=== PATIENT | male | born 1935 | race Caucasian/White ===

== ENCOUNTER 2017-07-22 16:19 | Inpatient (IN) | payer OTHER ==
[~2017-07-22] VITALS: Ht 165.1 cm; Wt 65.1 kg
[~2017-07-22 16:19] MED LIST: ASPIRIN325 MG PO; AUGMENTIN875 MG PO; CALCIUM 500 +1 EACH PO; CLONAZEPAM0.5 MG PO; CYANOCOBALAM1000 MCG PO; DAILY VITAMIN1 EAC4 PO; DUONEB 2.5-0.5 M3 ML AEROSOL; ESCITALOPRAM OX10 MG PO; ESCITALOPRAM OX20 MG PO; EXELON PATCH9.5 MG TD; EXELON3 MG PO; FINASTERIDE5 MG PO; FOLIC ACID0.8 MG PO; FOLIC ACID1 MG PO; LIPITOR80 MG PO; LOPRESSOR50 MG PO; NAMENDA10 MG PO; OMEPRAZOLE20 MG PO; PANTOPRAZOLE SO40 MG PO; POLYETHYLENE GL17 GM PO; PREDNISONE10 MG PO; PROTONIX40 MG PO; RIVASTIGMINE4.5 MG PO; Robitussin DM PO; SENNA-TIME S T1 EACH PO; TAMSULOSIN HCL0.4 MG PO; TRAMADOL HCL50 MG PO; TRAZODONE HCL50 MG PO; VALIUM10 MG PO; VITAMIN E400 UNI6 PO; ZETIA10 MG PO
[2017-07-22 17:26] LABS: HEMATOCRIT 40.9 % (38.0-50.0); HEMOGLOBIN 13.5 G/DL (12.5-16.6); MCH 30.9 PG (29.0-34.0); MCV 93.6 FL (86-99); PLATELET COUNT 280 K/uL (156-360); RBC DIS.WIDTH-CV 13.1 % (11.8-14.6); RBC DIS.WIDTH-SD 45.1 % (39-53); RED BLOOD COUNT 4.37 M/uL (4.00-5.50); WHITE BLOOD COUNT 6.5 K/uL (4.1-10.2)
[2017-07-22 17:41] LABS: CHLORIDE 98 mEq/L (99-109); POTASSIUM 3.9 mEq/L (3.7-5.4); SODIUM 138 mEq/L (136-147)
[2017-07-22 17:42] LABS: GLUCOSE 86 mg/dL (70-99)
[2017-07-22 17:46] LABS: CREATININE 0.8 mg/dL (0.6-1.3); GFR ESTIMATE (CALCULATED) > 59 mL/min/ (58.99-99999)
[2017-07-22 17:47] LABS: UREA NITROGEN (BUN) 12 mg/dL (9-23)
[2017-07-22 18:51] LABS: TROP-I INTERPRETATION NEGATIVE; TROPONIN-I < 0.01 ng/mL (0.0-0.30)
[2017-07-22] MEDS ORDERED: HYCODAN SYRUP480 ML PO (23:11)
[2017-07-22] MEDS ORDERED: SINGULAIR10 MG PO (23:12)
[2017-07-22] MEDS ORDERED: NIACIN500 M1 PO (23:12)
[2017-07-22] MEDS ORDERED: SINUS & ALLERG1 EACH PO (23:12)
[2017-07-23 02:05] LABS: HEMATOCRIT 38.5 % (38.0-50.0); HEMOGLOBIN 12.9 G/DL (12.5-16.6); MCH 31.2 PG (29.0-34.0); MCHC 33.5 G/DL (30.0-36.0); MCV 93.2 FL (86-99); PLATELET COUNT 245 K/uL (156-360); RBC DIS.WIDTH-SD 44.8 % (39-53); RED BLOOD COUNT 4.13 M/uL (4.00-5.50); WHITE BLOOD COUNT 8.9 K/uL (4.1-10.2)
[2017-07-23 03:00] VITALS: BP 117/56
[2017-07-23 07:06] LABS: APPEARANCE CLEAR ((CLEAR)); BILIRUBIN NEGATIVE; BLOOD NEGATIVE; COLOR YELLOW ((YELLOW)); GLUCOSE (STRIP) NEGATIVE; KETONES 20; LEUKOCYTES NEGATIVE; NITRITE NEGATIVE; PROTEIN (STRIP) NEGATIVE; SPECIFIC GRAVITY 1.012 (1.000-1.030); UCUL ADDED? NO; UROBILINOGEN 0.2 MG/DL (0.2-1.0)
[2017-07-23 07:10] LABS: TROP-I INTERPRETATION NEGATIVE; TROPONIN-I < 0.01 ng/mL (0.0-0.30)
[2017-07-23 07:11] LABS: HDL CHOLESTEROL 32 MG/DL (Desirable>=40); LDL CHOLESTEROL 89 mg/dL (Desirable<100); NON-HDL CHOLESTEROL 96 mg/dL (Desirable<160); TOTAL CHOLESTEROL 128 mg/dL (Desirable<200); TRIGLYCERIDES 34 MG/DL (Normal: <150)
[2017-07-23 10:42] LABS: C-REACTIVE PROTEIN 23.2 MG/L (0-10)
[2017-07-23 10:43] LABS: HEMOGLOBIN A1c (GLYCOHEMOGLOB) 6.2 % (Below 5.7)
[2017-07-23 11:09] VITALS: BP 109/56
[2017-07-23 14:42] LABS: TROP-I INTERPRETATION NEGATIVE; TROPONIN-I < 0.01 ng/mL (0.0-0.30)
[2017-07-23 15:01] VITALS: BP 107/59
[2017-07-23 19:19] VITALS: BP 137/72
[2017-07-23 23:37] VITALS: BP 133/69
[2017-07-24] VITALS (7 sets, daily range): BP systolic 111–135; BP diastolic 62–71
[2017-07-25 00:18] VITALS: BP 161/81
[2017-07-25 04:00] VITALS: BP 155/79
[2017-07-25 06:37] LABS: BASOPHIL (%) 0 % (0-1); EOSINOPHIL (%) 0 % (0-5); HEMATOCRIT 40.7 % (38.0-50.0); HEMOGLOBIN 13.2 G/DL (12.5-16.6); IMMATURE GRANULOCYTE (%) 0.3 % (0.0-0.7); LYMPHOCYTE (%) 12.9 % (15-42); LYMPHOCYTE COUNT 1.2 K/uL (1.0-2.8); MCHC 32.4 G/DL (30.0-36.0); MCV 92.5 FL (86-99); MONOCYTE (%) 6.5 % (3-12); MONOCYTE COUNT 0.6 K/uL (0-0.8); NEUTROPHIL (%) 80.3 % (45-76); NEUTROPHIL COUNT 7.4 K/uL (1.8-6.4); PLATELET COUNT 295 K/uL (156-360); RBC DIS.WIDTH-CV 12.9 % (11.8-14.6); RBC DIS.WIDTH-SD 44.2 % (39-53); WHITE BLOOD COUNT 9.2 K/uL (4.1-10.2)
[2017-07-25 07:00] LABS: CHLORIDE 98 MEQ/L (99-109); CREATININE 0.7 MG/DL (0.6-1.3); GFR ESTIMATE (CALCULATED) > 59 mL/min/ (58.99-99999); SODIUM 139 MEQ/L (136-147); UREA NITROGEN (BUN) 13 mg/dL (9-23)
[2017-07-25 07:04] LABS: GLUCOSE 114 mg/dL (70-99)
[2017-07-25 07:45] VITALS: BP 159/73
[2017-07-25] MEDS ORDERED: PREDNISONE10 MG PO (11:09)
[2017-07-25 12:01] VITALS: BP 130/71
== END 2017-07-25 13:22 | disposition home or self-care (01) | DRG 516 ==
LOC: EME 16:19 → EDOF 07-23 01:18 → 5SOUTH 07-23 01:18 → ENRESERV 07-23 01:24 → 5SOUTH 07-23 02:49
PROVIDERS: Hospitalist; Student in an Organized Health Care Education/Training Program
PROC: 03BS0ZX Excision of Right Temporal Artery, Open Approach, Diagnostic (ICD-10-PCS; principal; 2017-07-23)
DX: M31.6 Other giant cell arteritis (principal); R06.02 Shortness of breath; J84.10 Pulmonary fibrosis, unspecified; K21.9 Gastro-esophageal reflux disease without esophagitis; I25.10 Atherosclerotic heart disease of native coronary artery without angina pectoris; I10 Essential (primary) hypertension; F33.1 Major depressive disorder, recurrent, moderate; F02.81 Dementia in other diseases classified elsewhere, unspecified severity, with behavioral disturbance; E78.00 Pure hypercholesterolemia, unspecified; G30.9 Alzheimer's disease, unspecified; E78.5 Hyperlipidemia, unspecified; Z85.828 Personal history of other malignant neoplasm of skin; Z87.891 Personal history of nicotine dependence; I25.2 Old myocardial infarction; Z95.1 Presence of aortocoronary bypass graft; Z86.73 Personal history of transient ischemic attack (TIA), and cerebral infarction without residual deficits; Z82.3 Family history of stroke; Z88.5 Allergy status to narcotic agent
CPT/HCPCS: 70450; 70551; 71046; 80048; 80061; 81003; 83036; 84484; 85025; 85027; 85652; 86140; 88305; 88313; 93005; 94640; 94640 76; 94799; 99202; 99281; 99285; J0690; J1644; J2270; J2405; J3010; J7040; J7512; S0020

== ENCOUNTER 2017-08-25 16:10 | Emergency (ER) | payer OTHER ==
[~2017-08-25] VITALS: Ht 167.6 cm; Wt 70.4 kg
[~2017-08-25 16:10] MED LIST changes: +HYCODAN SYRUP480 ML PO; +NIACIN500 M1 PO; +SINGULAIR10 MG PO; +SINUS & ALLERG1 EACH PO
[2017-08-25 17:00] LABS: BASOPHIL (%) 0.5 % (0-1); EOSINOPHIL COUNT 0.5 K/uL (0-0.3); HEMATOCRIT 43.5 % (38.0-50.0); HEMOGLOBIN 14.5 G/DL (12.5-16.6); IMMATURE GRANULOCYTE (%) 0.2 % (0.0-0.7); LYMPHOCYTE (%) 31.2 % (15-42); LYMPHOCYTE COUNT 1.7 K/uL (1.0-2.8); MCH 31.3 PG (29.0-34.0); MCHC 33.3 G/DL (30.0-36.0); MONOCYTE (%) 12.4 % (3-12); MONOCYTE COUNT 0.7 K/uL (0-0.8); NEUTROPHIL (%) 46.7 % (45-76); NEUTROPHIL COUNT 2.6 K/uL (1.8-6.4); PLATELET COUNT 358 K/uL (156-360); RBC DIS.WIDTH-CV 14.5 % (11.8-14.6); RBC DIS.WIDTH-SD 50.4 % (39-53); RED BLOOD COUNT 4.63 M/uL (4.00-5.50); WHITE BLOOD COUNT 5.6 K/uL (4.1-10.2)
[2017-08-25 17:08] LABS: ALBUMIN 3.7 g/dL (3.2-4.8)
[2017-08-25 17:09] LABS: CHLORIDE 99 mEq/L (99-109); SODIUM 138 mEq/L (136-147)
[2017-08-25 17:11] LABS: GLUCOSE 132 mg/dL (70-99); TOTAL PROTEIN 7.5 g/dL (6.4-8.3)
[2017-08-25 17:14] LABS: ALKALINE PHOSPHATASE 123 IU/L (3-129); TOTAL BILIRUBIN 0.5 mg/dL (0.0-1.0)
[2017-08-25 17:15] LABS: CREATININE 0.8 mg/dL (0.6-1.3); GFR ESTIMATE (CALCULATED) > 59 mL/min/ (58.99-99999)
[2017-08-25 17:16] LABS: AST (GOT) 32 IU/L (2-34); UREA NITROGEN (BUN) 11 mg/dL (9-23)
[2017-08-25 17:17] LABS: ALT (GPT) 30 IU/L (3-49)
[2017-08-25 17:20] LABS: TROP-I INTERPRETATION NEGATIVE; TROPONIN-I < 0.01 ng/mL (0.0-0.30)
[2017-08-25 17:41] LABS: ERTH.SED.RATE 65 MM/HR (0-20)
[2017-08-25 17:47] LABS: C-REACTIVE PROTEIN 8.1 MG/L (0-10)
[2017-08-25 19:38] VITALS: BP 154/82
== END 2017-08-25 19:44 | disposition home or self-care (01) ==
LOC: EME 16:10
PROVIDERS: Emergency Medicine
DX: R51 Headache (principal); I10 Essential (primary) hypertension; E78.5 Hyperlipidemia, unspecified; K21.9 Gastro-esophageal reflux disease without esophagitis; F03.90 Unspecified dementia, unspecified severity, without behavioral disturbance, psychotic disturbance, mood disturbance, and anxiety; I25.2 Old myocardial infarction; Z95.1 Presence of aortocoronary bypass graft; Z86.73 Personal history of transient ischemic attack (TIA), and cerebral infarction without residual deficits; Z88.5 Allergy status to narcotic agent
CPT/HCPCS: 70450; 80053; 84484; 85025; 85652; 86140; 93005; 99281; 99285; J2270

== ENCOUNTER 2017-09-12 07:36 | Inpatient (IN) | payer OTHER ==
[~2017-09-12] VITALS: Ht 165.1 cm; Wt 69.6 kg
[2017-09-12 08:31] LABS: BASOPHIL (%) 0.2 % (0-1); EOSINOPHIL (%) 0 % (0-5); HEMATOCRIT 37.3 % (38.0-50.0); HEMOGLOBIN 12.7 G/DL (12.5-16.6); IMMATURE GRANULOCYTE (%) 0.4 % (0.0-0.7); LYMPHOCYTE (%) 3.3 % (15-42); LYMPHOCYTE COUNT 0.5 K/uL (1.0-2.8); MCH 30.7 PG (29.0-34.0); MCV 90.1 FL (86-99); MONOCYTE (%) 7.3 % (3-12); NEUTROPHIL (%) 88.8 % (45-76); NEUTROPHIL COUNT 12.3 K/uL (1.8-6.4); PLATELET COUNT 340 K/uL (156-360); RBC DIS.WIDTH-CV 13.9 % (11.8-14.6); RBC DIS.WIDTH-SD 45.8 % (39-53); RED BLOOD COUNT 4.14 M/uL (4.00-5.50); WHITE BLOOD COUNT 13.8 K/uL (4.1-10.2)
[2017-09-12 08:40] LABS: CHLORIDE 96 mEq/L (99-109); POTASSIUM 4.2 mEq/L (3.7-5.4); SODIUM 136 mEq/L (136-147)
[2017-09-12 08:42] LABS: GLUCOSE 128 mg/dL (70-99)
[2017-09-12 08:46] LABS: CREATININE 0.7 mg/dL (0.6-1.3); GFR ESTIMATE (CALCULATED) > 59 mL/min/ (58.99-99999)
[2017-09-12 08:47] LABS: UREA NITROGEN (BUN) 13 mg/dL (9-23)
[2017-09-12 09:46] LABS: TROP-I INTERPRETATION NEGATIVE; TROPONIN-I 0.04 ng/mL (0.0-0.30)
[2017-09-12 13:29] VITALS: BP 105/64
[2017-09-12 15:30] VITALS: BP 120/64
[2017-09-12 22:41] VITALS: BP 104/62
[2017-09-13 05:56] LABS: BASOPHIL (%) 0.1 % (0-1); EOSINOPHIL (%) 0 % (0-5); HEMATOCRIT 34.9 % (38.0-50.0); HEMOGLOBIN 11.6 G/DL (12.5-16.6); IMMATURE GRANULOCYTE (%) 0.8 % (0.0-0.7); MCH 29.9 PG (29.0-34.0); MCHC 33.2 G/DL (30.0-36.0); MCV 89.9 FL (86-99); MONOCYTE COUNT 0.7 K/uL (0-0.8); NEUTROPHIL (%) 89.1 % (45-76); NEUTROPHIL COUNT 14.9 K/uL (1.8-6.4); PLATELET COUNT 355 K/uL (156-360); RED BLOOD COUNT 3.88 M/uL (4.00-5.50); WHITE BLOOD COUNT 16.7 K/uL (4.1-10.2)
[2017-09-13 06:36] LABS: ALBUMIN 2.8 G/DL (3.2-4.8); ALKALINE PHOSPHATASE 78 IU/L (3-129); ALT (GPT) 15 IU/L (3-49); AST (GOT) 31 IU/L (2-34); CHLORIDE 92 MEQ/L (99-109); CREATININE 0.6 MG/DL (0.6-1.3); GFR ESTIMATE (CALCULATED) > 59 mL/min/ (58.99-99999); GLUCOSE 137 mg/dL (70-99); POTASSIUM 3.9 MEQ/L (3.7-5.4); SODIUM 134 MEQ/L (136-147); TOTAL BILIRUBIN 0.7 MG/DL (0.0-1.0); TOTAL PROTEIN 5.9 G/DL (6.4-8.3); UREA NITROGEN (BUN) 16 mg/dL (9-23)
[2017-09-13 08:29] VITALS: BP 110/59
[2017-09-13 09:41] LABS: C-REACTIVE PROTEIN 177.9 MG/L (0-10)
[2017-09-13 10:09] LABS: ERTH.SED.RATE 82 MM/HR (0-20)
[2017-09-13 10:49] VITALS: BP 108/57
[2017-09-13] MEDS ORDERED: FLOMAX0.4 MG PO (15:31)
[2017-09-13 16:16] VITALS: BP 109/68
[2017-09-13 21:36] VITALS: BP 137/72
[2017-09-14 00:26] VITALS: BP 107/54
[2017-09-14 07:14] VITALS: BP 118/60
[2017-09-14 08:59] LABS: BASOPHIL (%) 0.1 % (0-1); EOSINOPHIL (%) 0 % (0-5); HEMATOCRIT 36.3 % (38.0-50.0); HEMOGLOBIN 12.1 G/DL (12.5-16.6); IMMATURE GRANULOCYTE (%) 0.5 % (0.0-0.7); LYMPHOCYTE (%) 5.9 % (15-42); LYMPHOCYTE COUNT 0.8 K/uL (1.0-2.8); MCH 29.8 PG (29.0-34.0); MCHC 33.3 G/DL (30.0-36.0); MCV 89.4 FL (86-99); MONOCYTE (%) 8.1 % (3-12); NEUTROPHIL (%) 85.4 % (45-76); NEUTROPHIL COUNT 10.9 K/uL (1.8-6.4); PLATELET COUNT 376 K/uL (156-360); RBC DIS.WIDTH-CV 13.9 % (11.8-14.6); RBC DIS.WIDTH-SD 45.4 % (39-53); RED BLOOD COUNT 4.06 M/uL (4.00-5.50); WHITE BLOOD COUNT 12.8 K/uL (4.1-10.2)
[2017-09-14 10:02] LABS: CHLORIDE 94 MEQ/L (99-109); CREATININE 0.6 MG/DL (0.6-1.3); GFR ESTIMATE (CALCULATED) > 59 mL/min/ (58.99-99999); GLUCOSE 122 mg/dL (70-99); POTASSIUM 4.5 MEQ/L (3.7-5.4); SODIUM 137 MEQ/L (136-147); UREA NITROGEN (BUN) 20 mg/dL (9-23)
[2017-09-14 12:18] LABS: APPEARANCE CLEAR ((CLEAR)); BILIRUBIN NEGATIVE; BLOOD NEGATIVE; COLOR YELLOW ((YELLOW)); GLUCOSE (STRIP) NEGATIVE; KETONES NEGATIVE; LEUKOCYTES NEGATIVE; NITRITE NEGATIVE; PROTEIN (STRIP) NEGATIVE; SPECIFIC GRAVITY 1.017 (1.000-1.030); UCUL ADDED? NO; UROBILINOGEN 0.2 MG/DL (0.2-1.0)
[2017-09-14 12:20] VITALS: BP 109/62
[2017-09-14 12:45] LABS: C DIFF TOXIN NEGATIVE (NEGATIVE)
[2017-09-14 17:40] VITALS: BP 138/65
[2017-09-15 00:21] VITALS: BP 129/66
[2017-09-15 06:31] LABS: BASOPHIL (%) 0.1 % (0-1); EOSINOPHIL (%) 0 % (0-5); HEMATOCRIT 32.8 % (38.0-50.0); HEMOGLOBIN 10.7 G/DL (12.5-16.6); LYMPHOCYTE (%) 6.5 % (15-42); LYMPHOCYTE COUNT 0.8 K/uL (1.0-2.8); MCHC 32.6 G/DL (30.0-36.0); MCV 91.9 FL (86-99); MONOCYTE (%) 7.4 % (3-12); MONOCYTE COUNT 0.9 K/uL (0-0.8); NEUTROPHIL COUNT 10.1 K/uL (1.8-6.4); PLATELET COUNT 350 K/uL (156-360); RBC DIS.WIDTH-CV 13.9 % (11.8-14.6); RBC DIS.WIDTH-SD 47.4 % (39-53); RED BLOOD COUNT 3.57 M/uL (4.00-5.50); WHITE BLOOD COUNT 11.8 K/uL (4.1-10.2)
[2017-09-15 06:57] LABS: CHLORIDE 99 MEQ/L (99-109); CREATININE 0.7 MG/DL (0.6-1.3); GFR ESTIMATE (CALCULATED) > 59 mL/min/ (58.99-99999); GLUCOSE 126 mg/dL (70-99); POTASSIUM 4.7 MEQ/L (3.7-5.4); SODIUM 139 MEQ/L (136-147); UREA NITROGEN (BUN) 19 mg/dL (9-23)
[2017-09-15 08:00] VITALS: BP 141/78
[2017-09-15 17:04] VITALS: BP 119/65
[2017-09-15 23:50] VITALS: BP 115/71
[2017-09-16 07:44] VITALS: BP 118/67
[2017-09-16 15:55] VITALS: BP 133/69
[2017-09-17 07:47] VITALS: BP 121/62
[2017-09-17 16:00] VITALS: BP 138/69
[2017-09-18 00:39] VITALS: BP 146/80
[2017-09-18 07:43] VITALS: BP 139/73
[2017-09-18 15:12] VITALS: BP 181/90
[2017-09-19] VITALS: BP 163/87
[2017-09-19 07:50] VITALS: BP 110/62
[2017-09-19 16:06] VITALS: BP 118/65
[2017-09-20 00:39] VITALS: BP 110/60
[2017-09-20 06:20] LABS: BASOPHIL (%) 0.1 % (0-1); EOSINOPHIL (%) 0 % (0-5); HEMATOCRIT 38.9 % (38.0-50.0); IMMATURE GRANULOCYTE (%) 0.9 % (0.0-0.7); LYMPHOCYTE (%) 9.4 % (15-42); LYMPHOCYTE COUNT 1.2 K/uL (1.0-2.8); MCH 30.5 PG (29.0-34.0); MCHC 32.9 G/DL (30.0-36.0); MCV 92.8 FL (86-99); MONOCYTE (%) 4.3 % (3-12); MONOCYTE COUNT 0.5 K/uL (0-0.8); NEUTROPHIL (%) 85.3 % (45-76); NEUTROPHIL COUNT 10.8 K/uL (1.8-6.4); PLATELET COUNT 427 K/uL (156-360); RBC DIS.WIDTH-CV 14.4 % (11.8-14.6); RBC DIS.WIDTH-SD 48.2 % (39-53); RED BLOOD COUNT 4.19 M/uL (4.00-5.50); WHITE BLOOD COUNT 12.6 K/uL (4.1-10.2)
[2017-09-20 06:21] LABS: HEMOGLOBIN 12.8 G/DL (12.5-16.6)
[2017-09-20 06:53] LABS: CHLORIDE 96 MEQ/L (99-109); CREATININE 0.6 MG/DL (0.6-1.3); GFR ESTIMATE (CALCULATED) > 59 mL/min/ (58.99-99999); GLUCOSE 116 mg/dL (70-99); MAGNESIUM 2.2 mg/dl (1.3-2.7); POTASSIUM 4.9 MEQ/L (3.7-5.4); SODIUM 137 MEQ/L (136-147); UREA NITROGEN (BUN) 21 mg/dL (9-23)
[2017-09-20 08:00] VITALS: BP 126/66
[2017-09-20 16:24] VITALS: BP 124/69
[2017-09-20 23:49] VITALS: BP 144/72
[2017-09-21 07:55] VITALS: BP 111/62
[2017-09-21] MEDS ORDERED: AMOX TR-K CLV1 EAC4 PO (09:46)
[2017-09-21] MEDS ORDERED: BENZONATATE100 MG PO (09:48)
[2017-09-21] MEDS ORDERED: ACIDOPHILUS LA1 EACH PO (09:48)
[2017-09-21] MEDS ORDERED: PREDNISONE5 M1 PO (09:49)
== END 2017-09-21 12:05 | disposition home health service (06) | DRG 871 ==
LOC: EME 07:36 → EDOF 10:12 → 5SOUTH 10:12 → ENRESERV 10:17 → EDOF 10:43 → ENRESERV 10:55 → 5SOUTH 13:15
PROVIDERS: Emergency Medicine; Hospitalist; Physician Assistant
DX: A41.9 Sepsis, unspecified organism (principal); J96.21 Acute and chronic respiratory failure with hypoxia; J18.9 Pneumonia, unspecified organism; J84.10 Pulmonary fibrosis, unspecified; R25.1 Tremor, unspecified; J45.909 Unspecified asthma, uncomplicated; F03.90 Unspecified dementia, unspecified severity, without behavioral disturbance, psychotic disturbance, mood disturbance, and anxiety; I10 Essential (primary) hypertension; I25.10 Atherosclerotic heart disease of native coronary artery without angina pectoris; E78.5 Hyperlipidemia, unspecified; K21.9 Gastro-esophageal reflux disease without esophagitis; F32.9 Major depressive disorder, single episode, unspecified; F41.9 Anxiety disorder, unspecified; Y95 Nosocomial condition; Z99.81 Dependence on supplemental oxygen; I25.2 Old myocardial infarction; Z86.73 Personal history of transient ischemic attack (TIA), and cerebral infarction without residual deficits; Z95.1 Presence of aortocoronary bypass graft; Z87.891 Personal history of nicotine dependence
CPT/HCPCS: 71045; 71046; 71250; 74230; 80048; 80053; 81003; 83605; 83735; 83880; 84484; 85025; 85652; 86140; 87040; 87070; 87205; 87449; 87493; 87502; 87641; 92611 GN; 93005; 94010; 94640; 94640 76; 94667; 94668; 94760; 94799; 97530 GO; 97530 GP; 99202; 99281; 99285; J0456; J0696; J1650; J1940; J2543; J2920; J2930; J3370; J7030; J7050; J7512

== ENCOUNTER 2017-10-30 11:10 | Inpatient (IN) | payer OTHER ==
[~2017-10-30] VITALS: Ht 165.1 cm; Wt 62.7 kg
[~2017-10-30 11:10] MED LIST changes: +ACIDOPHILUS LA1 EACH PO; +AMOX TR-K CLV1 EAC4 PO; +BENZONATATE100 MG PO; +FLOMAX0.4 MG PO; +PREDNISONE5 M1 PO
[2017-10-30 11:29] LABS: BASOPHIL (%) 0.2 % (0-1); EOSINOPHIL (%) 0.8 % (0-5); EOSINOPHIL COUNT 0.1 K/uL (0-0.3); HEMATOCRIT 38.6 % (38.0-50.0); IMMATURE GRANULOCYTE (%) 0.4 % (0.0-0.7); LYMPHOCYTE (%) 9.3 % (15-42); LYMPHOCYTE COUNT 0.9 K/uL (1.0-2.8); MCH 30.6 PG (29.0-34.0); MCHC 33.7 G/DL (30.0-36.0); MCV 90.8 FL (86-99); MONOCYTE (%) 8.2 % (3-12); MONOCYTE COUNT 0.8 K/uL (0-0.8); NEUTROPHIL (%) 81.1 % (45-76); NEUTROPHIL COUNT 8.2 K/uL (1.8-6.4); PLATELET COUNT 341 K/uL (156-360); RBC DIS.WIDTH-CV 14.7 % (11.8-14.6); RED BLOOD COUNT 4.25 M/uL (4.00-5.50); WHITE BLOOD COUNT 10.1 K/uL (4.1-10.2)
[2017-10-30 11:40] LABS: ALBUMIN 3.2 g/dL (3.2-4.8); CHLORIDE 85 mEq/L (99-109); SODIUM 129 mEq/L (136-147)
[2017-10-30 11:41] LABS: MAGNESIUM 1.7 mg/dL (1.3-2.7)
[2017-10-30 11:43] LABS: GLUCOSE 103 mg/dL (70-99); TOTAL PROTEIN 7.1 g/dL (6.4-8.3)
[2017-10-30 11:44] LABS: TOTAL BILIRUBIN 0.5 mg/dL (0.0-1.0)
[2017-10-30 11:46] LABS: ALKALINE PHOSPHATASE 99 IU/L (3-129); CREATININE 0.7 mg/dL (0.6-1.3); GFR ESTIMATE (CALCULATED) > 59 mL/min/ (58.99-99999)
[2017-10-30 11:47] LABS: UREA NITROGEN (BUN) 11 mg/dL (9-23)
[2017-10-30 11:48] LABS: AST (GOT) 34 IU/L (2-34)
[2017-10-30 11:49] LABS: ALT (GPT) 30 IU/L (3-49)
[2017-10-30 11:50] LABS: TROP-I INTERPRETATION NEGATIVE; TROPONIN-I 0.01 ng/mL (0.0-0.30)
[2017-10-30 12:20] LABS: APPEARANCE TURBID ((CLEAR)); BILIRUBIN NEGATIVE; BLOOD NEGATIVE; COLOR YELLOW ((YELLOW)); GLUCOSE (STRIP) NEGATIVE; KETONES NEGATIVE; LEUKOCYTES NEGATIVE; NITRITE NEGATIVE; PROTEIN (STRIP) 30; SPECIFIC GRAVITY 1.013 (1.000-1.030); UROBILINOGEN 0.2 MG/DL (0.2-1.0)
[2017-10-30] MEDS ORDERED: DUONEB 2.5-0.5 M3 ML AEROSOL (12:35)
[2017-10-30] MEDS ORDERED: TRAZODONE HCL50 MG PO (12:36)
[2017-10-30] MEDS ORDERED: TESSALON PERLE100 MG PO (12:37)
[2017-10-30] MEDS ORDERED: DAILY VALUE1 EACH PO (12:38)
[2017-10-30] MEDS ORDERED: PROBIOTIC1 EAC1 PO (12:38)
[2017-10-30] MEDS ORDERED: PREDNISONE10 MG PO (12:38)
[2017-10-30] MEDS ORDERED: SEROQUEL12.5 MG PO (12:38)
[2017-10-30] MEDS ORDERED: LEXAPRO10 MG PO ×2 (12:39)
[2017-10-30] MEDS ORDERED: ASTEPRO 0.15%30 ML BOTH NARES (12:39)
[2017-10-30] MEDS ORDERED: PRESERVISION T1 EACH PO (12:39)
[2017-10-30 12:40] LABS: BACTERIA 3+ /HPF; EPITHELIAL CELLS RARE /HPF; MUCUS NONE SEEN /LPF; RED BLOOD CELLS NONE SEEN /HPF (0-5); UCUL ADDED? YES; WHITE BLOOD CELLS 0-5 /HPF (0-5)
[2017-10-30] MEDS ORDERED: FLONASE16 G1 BOTH NARES (12:40)
[2017-10-30 12:41] LABS: AMORPHOUS PHOSPHATE CRYSTALS 3+
[2017-10-30 13:05] LABS: BASE EXCESS 10.7 mEq/L (-3 to +3); BICARBONATE 35.7 mEq/L (22-26); CARBOXY HGB 2.4 % (0-5); PCO2 48 mm Hg (35-45); PO2 65 mm Hg (80-100); pH 7.48 (7.35-7.45)
[2017-10-30 13:07] LABS: COMMENTS - BLOOD GASES C+; DEVICE NC; O2 FLOW 5 L/MIN; SITE RR
[2017-10-30 13:08] LABS: TOTAL RESP RATE 22 resp/min
[2017-10-30 19:23] VITALS: BP 108/61
[2017-10-30 23:27] VITALS: BP 90/50
[2017-10-31 03:46] VITALS: BP 106/55
[2017-10-31 05:35] LABS: HEMATOCRIT 35.7 % (38.0-50.0); HEMOGLOBIN 11.6 G/DL (12.5-16.6); MCH 29.1 PG (29.0-34.0); MCHC 32.5 G/DL (30.0-36.0); MCV 89.5 FL (86-99); PLATELET COUNT 362 K/uL (156-360); RBC DIS.WIDTH-CV 14.6 % (11.8-14.6); RBC DIS.WIDTH-SD 48.2 % (39-53); RED BLOOD COUNT 3.99 M/uL (4.00-5.50); WHITE BLOOD COUNT 5.3 K/uL (4.1-10.2)
[2017-10-31 06:15] LABS: CHLORIDE 92 MEQ/L (99-109); CREATININE 0.6 MG/DL (0.6-1.3); GFR ESTIMATE (CALCULATED) > 59 mL/min/ (58.99-99999); GLUCOSE 136 mg/dL (70-99); POTASSIUM 4.8 MEQ/L (3.7-5.4); SODIUM 135 MEQ/L (136-147); UREA NITROGEN (BUN) 13 mg/dL (9-23)
[2017-10-31 07:21] VITALS: BP 105/62
[2017-10-31 11:15] VITALS: BP 108/60
[2017-10-31 15:37] VITALS: BP 112/56
[2017-10-31 19:53] VITALS: BP 122/65
[2017-11-01 00:01] VITALS: BP 109/63
[2017-11-01 03:48] VITALS: BP 126/72
[2017-11-01 06:03] LABS: HEMOGLOBIN 11.9 G/DL (12.5-16.6); MCH 29.3 PG (29.0-34.0); MCHC 32.2 G/DL (30.0-36.0); MCV 91.1 FL (86-99); PLATELET COUNT 379 K/uL (156-360); RBC DIS.WIDTH-CV 14.6 % (11.8-14.6); RBC DIS.WIDTH-SD 49.4 % (39-53); RED BLOOD COUNT 4.06 M/uL (4.00-5.50); WHITE BLOOD COUNT 10.6 K/uL (4.1-10.2)
[2017-11-01 06:16] LABS: CHLORIDE 94 MEQ/L (99-109); CREATININE 0.6 MG/DL (0.6-1.3); GFR ESTIMATE (CALCULATED) > 59 mL/min/ (58.99-99999); GLUCOSE 131 mg/dL (70-99); POTASSIUM 5.1 MEQ/L (3.7-5.4); SODIUM 135 MEQ/L (136-147); UREA NITROGEN (BUN) 19 mg/dL (9-23)
[2017-11-01 08:05] VITALS: BP 134/73
[2017-11-01 17:05] VITALS: BP 128/69
[2017-11-01 19:24] VITALS: BP 121/70
[2017-11-01 23:48] VITALS: BP 117/67
[2017-11-02 03:36] VITALS: BP 118/66
[2017-11-02 06:53] LABS: HEMATOCRIT 36.3 % (38.0-50.0); HEMOGLOBIN 11.4 G/DL (12.5-16.6); MCH 28.9 PG (29.0-34.0); MCHC 31.4 G/DL (30.0-36.0); MCV 92.1 FL (86-99); PLATELET COUNT 398 K/uL (156-360); RBC DIS.WIDTH-CV 14.6 % (11.8-14.6); RED BLOOD COUNT 3.94 M/uL (4.00-5.50); WHITE BLOOD COUNT 9.4 K/uL (4.1-10.2)
[2017-11-02 07:19] LABS: CHLORIDE 92 MEQ/L (99-109); CREATININE 0.5 MG/DL (0.6-1.3); GFR ESTIMATE (CALCULATED) > 59 mL/min/ (58.99-99999); GLUCOSE 105 mg/dL (70-99); POTASSIUM 4.9 MEQ/L (3.7-5.4); SODIUM 137 MEQ/L (136-147); UREA NITROGEN (BUN) 22 mg/dL (9-23)
[2017-11-02 07:20] LABS: CARBON DIOXIDE (BICARBONATE) > 40.0 MEQ/L (20-31)
[2017-11-02 07:25] VITALS: BP 128/62
[2017-11-02 11:21] LABS: BASE EXCESS 14.4 mEq/L (-3 to +3); CARBOXY HGB 2.5 % (0-5); METHEMOGLOBIN 1.8 % (0-1.5); PO2 59 mm Hg (80-100); pH 7.44 (7.35-7.45)
[2017-11-02 11:22] LABS: BICARBONATE 41.4 mEq/L (22-26); COMMENTS - BLOOD GASES A+C+; DEVICE NC; O2 FLOW 3 L/MIN; PCO2 61 mm Hg (35-45); SITE RR; TOTAL RESP RATE 16 resp/min
[2017-11-02 12:00] VITALS: BP 132/64
[2017-11-02 16:00] VITALS: BP 141/73
[2017-11-02 19:29] VITALS: BP 147/75
[2017-11-03 00:16] VITALS: BP 131/69
[2017-11-03 04:04] VITALS: BP 160/75
[2017-11-03 07:56] VITALS: BP 135/83
[2017-11-03 08:19] LABS: HEMATOCRIT 38.5 % (38.0-50.0); HEMOGLOBIN 12.5 G/DL (12.5-16.6); MCH 29.9 PG (29.0-34.0); MCHC 32.5 G/DL (30.0-36.0); MCV 92.1 FL (86-99); PLATELET COUNT 366 K/uL (156-360); RBC DIS.WIDTH-CV 14.7 % (11.8-14.6); RBC DIS.WIDTH-SD 49.7 % (39-53); RED BLOOD COUNT 4.18 M/uL (4.00-5.50); WHITE BLOOD COUNT 7.9 K/uL (4.1-10.2)
[2017-11-03 08:48] LABS: CHLORIDE 91 MEQ/L (99-109); CREATININE 0.6 MG/DL (0.6-1.3); GFR ESTIMATE (CALCULATED) > 59 mL/min/ (58.99-99999); GLUCOSE 78 mg/dL (70-99); POTASSIUM 4.8 MEQ/L (3.7-5.4); SODIUM 136 MEQ/L (136-147); UREA NITROGEN (BUN) 22 mg/dL (9-23)
[2017-11-03 11:45] VITALS: BP 133/69
[2017-11-03 15:13] VITALS: BP 114/65
[2017-11-03] MEDS ORDERED: RETAINE MGD EY1 EACH BOTH EYES (15:30)
[2017-11-03 20:13] VITALS: BP 134/72
[2017-11-04 00:13] VITALS: BP 141/66
[2017-11-04 03:47] VITALS: BP 113/69
[2017-11-04 08:00] VITALS: BP 127/70
[2017-11-04 11:58] VITALS: BP 113/65
[2017-11-04 16:02] VITALS: BP 138/61
[2017-11-04 20:40] VITALS: BP 134/72
[2017-11-05] VITALS (7 sets, daily range): BP systolic 103–167; BP diastolic 61–82
[2017-11-05 09:48] LABS: HEMATOCRIT 44.3 % (38.0-50.0); HEMOGLOBIN 14.1 G/DL (12.5-16.6); MCH 29.9 PG (29.0-34.0); MCHC 31.8 G/DL (30.0-36.0); MCV 94.1 FL (86-99); PLATELET COUNT 403 K/uL (156-360); RBC DIS.WIDTH-SD 51.6 % (39-53); RED BLOOD COUNT 4.71 M/uL (4.00-5.50); WHITE BLOOD COUNT 12.9 K/uL (4.1-10.2)
[2017-11-06 03:29] VITALS: BP 107/58
[2017-11-06 05:18] LABS: HEMOGLOBIN 13.7 G/DL (12.5-16.6); MCHC 31.9 G/DL (30.0-36.0); MCV 91.1 FL (86-99); PLATELET COUNT 373 K/uL (156-360); RBC DIS.WIDTH-CV 14.8 % (11.8-14.6); RBC DIS.WIDTH-SD 49.4 % (39-53); RED BLOOD COUNT 4.72 M/uL (4.00-5.50); WHITE BLOOD COUNT 11.8 K/uL (4.1-10.2)
[2017-11-06 07:54] VITALS: BP 141/86
[2017-11-06 10:49] LABS: CHLORIDE 91 MEQ/L (99-109); CREATININE 0.7 MG/DL (0.6-1.3); GFR ESTIMATE (CALCULATED) > 59 mL/min/ (58.99-99999); GLUCOSE 101 mg/dL (70-99); POTASSIUM 4.3 MEQ/L (3.7-5.4); SODIUM 141 MEQ/L (136-147); UREA NITROGEN (BUN) 24 mg/dL (9-23)
[2017-11-06 10:51] LABS: CARBON DIOXIDE (BICARBONATE) > 40.0 MEQ/L (20-31)
[2017-11-06 11:16] VITALS: BP 131/70
[2017-11-06 15:47] VITALS: BP 113/63
[2017-11-06] MEDS ORDERED: PREDNISONE20 MG PO (15:49)
[2017-11-06] MEDS ORDERED: CLONAZEPAM0.5 MG PO (15:49)
[2017-11-06] MEDS ORDERED: CEFDINIR300 MG PO (15:51)
== END 2017-11-06 19:21 | DRG 189 ==
LOC: EME → EDBD 11:10 → EME 11:10 → EDOF 12:50 → 5SOUTH 12:50 → ENRESERV 13:02 → 5SOUTH 14:37
PROVIDERS: Emergency Medicine; Hospitalist; Physician Assistant; Physician Assistant Medical
DX: J96.21 Acute and chronic respiratory failure with hypoxia (principal); J84.10 Pulmonary fibrosis, unspecified; J45.901 Unspecified asthma with (acute) exacerbation; J20.9 Acute bronchitis, unspecified; Z99.81 Dependence on supplemental oxygen; E87.1 Hypo-osmolality and hyponatremia; D72.829 Elevated white blood cell count, unspecified; T38.0X5A Adverse effect of glucocorticoids and synthetic analogues, initial encounter; F03.90 Unspecified dementia, unspecified severity, without behavioral disturbance, psychotic disturbance, mood disturbance, and anxiety; R26.9 Unspecified abnormalities of gait and mobility; I10 Essential (primary) hypertension; E78.5 Hyperlipidemia, unspecified; I25.10 Atherosclerotic heart disease of native coronary artery without angina pectoris; K21.9 Gastro-esophageal reflux disease without esophagitis; F32.9 Major depressive disorder, single episode, unspecified; F41.9 Anxiety disorder, unspecified; N40.0 Benign prostatic hyperplasia without lower urinary tract symptoms; Z66 Do not resuscitate; I25.2 Old myocardial infarction; Z95.1 Presence of aortocoronary bypass graft; Z86.73 Personal history of transient ischemic attack (TIA), and cerebral infarction without residual deficits; Z87.891 Personal history of nicotine dependence
CPT/HCPCS: 36600; 71045; 71046; 80048; 80053; 81003; 82803; 83735; 83880; 84484; 85025; 85027; 87086; 93005; 94640; 94640 76; 94799; 97530 GO; 97530 GP; 99202; 99281; 99285; A6214; J0692; J1644; J2930; J7512

== ENCOUNTER 2017-11-08 10:35 | Inpatient (IN) | payer OTHER ==
[~2017-11-08] VITALS: Ht 165.1 cm; Wt 63.3 kg
[~2017-11-08 10:35] MED LIST changes: +ASTEPRO 0.15%30 ML BOTH NARES; +CEFDINIR300 MG PO; +DAILY VALUE1 EACH PO; +FLONASE16 G1 BOTH NARES; +LEXAPRO10 MG PO; +PREDNISONE20 MG PO; +PRESERVISION T1 EACH PO; +PROBIOTIC1 EAC1 PO; +RETAINE MGD EY1 EACH BOTH EYES; +SEROQUEL12.5 MG PO; +TESSALON PERLE100 MG PO
[2017-11-08 11:12] LABS: BASOPHIL (%) 0.2 % (0-1); EOSINOPHIL (%) 0 % (0-5); HEMOGLOBIN 14.7 G/DL (12.5-16.6); IMMATURE GRANULOCYTE (%) 0.6 % (0.0-0.7); LYMPHOCYTE (%) 5.4 % (15-42); LYMPHOCYTE COUNT 1.1 K/uL (1.0-2.8); MCH 30.1 PG (29.0-34.0); MCHC 33.4 G/DL (30.0-36.0); MCV 90.2 FL (86-99); MONOCYTE (%) 5.2 % (3-12); NEUTROPHIL (%) 88.6 % (45-76); NEUTROPHIL COUNT 17.2 K/uL (1.8-6.4); PLATELET COUNT 356 K/uL (156-360); RBC DIS.WIDTH-SD 48.9 % (39-53); RED BLOOD COUNT 4.88 M/uL (4.00-5.50); WHITE BLOOD COUNT 19.4 K/uL (4.1-10.2)
[2017-11-08 11:25] LABS: INTER. NORMALIZED RATIO 1.2
[2017-11-08 11:26] LABS: BASE EXCESS 9.2 mEq/L (-3 to +3); BICARBONATE 35.3 mEq/L (22-26); COMMENTS - BLOOD GASES +C; DEVICE NRBM; FI02 100 %; METHEMOGLOBIN 1.2 % (0-1.5); O2 FLOW 20 L/MIN; PCO2 52 mm Hg (35-45); PO2 239 mm Hg (80-100); SITE LR +A; pH 7.44 (7.35-7.45)
[2017-11-08 11:27] LABS: TOTAL RESP RATE 26 resp/min
[2017-11-08 11:28] LABS: PTT 20.6 SEC (25-37)
[2017-11-08 11:29] LABS: CHLORIDE 90 mEq/L (99-109); POTASSIUM 4.3 mEq/L (3.7-5.4); SODIUM 134 mEq/L (136-147)
[2017-11-08 11:32] LABS: GLUCOSE 168 mg/dL (70-99)
[2017-11-08 11:35] LABS: CREATININE 0.7 mg/dL (0.6-1.3); GFR ESTIMATE (CALCULATED) > 59 mL/min/ (58.99-99999); UREA NITROGEN (BUN) 20 mg/dL (9-23)
[2017-11-08 11:38] LABS: TROP-I INTERPRETATION NEGATIVE; TROPONIN-I 0.02 ng/mL (0.0-0.30)
[2017-11-08] MEDS ORDERED: TYLENOL REGULA325 MG PO (12:37)
[2017-11-08] MEDS ORDERED: FLEET ENEMA-AD118 ML PR (12:39)
[2017-11-08] MEDS ORDERED: MILK OF MAGN PO (12:42)
[2017-11-08] MEDS ORDERED: CLONAZEPAM0.5 MG PO (13:05)
[2017-11-08] MEDS ORDERED: DULCOLAX10 MG PR (13:06)
[2017-11-08 16:52] VITALS: BP 121/72
[2017-11-08 18:55] LABS: TROP-I INTERPRETATION NEGATIVE; TROPONIN-I 0.03 ng/mL (0.0-0.30)
[2017-11-08 19:00] VITALS: BP 118/68
[2017-11-08 23:39] VITALS: BP 115/65
[2017-11-09 04:45] VITALS: BP 110/64
[2017-11-09 05:24] LABS: HEMATOCRIT 41.8 % (38.0-50.0); HEMOGLOBIN 13.5 G/DL (12.5-16.6); MCH 29.7 PG (29.0-34.0); MCHC 32.3 G/DL (30.0-36.0); MCV 91.9 FL (86-99); PLATELET COUNT 285 K/uL (156-360); RBC DIS.WIDTH-CV 15.2 % (11.8-14.6); RBC DIS.WIDTH-SD 51.1 % (39-53); RED BLOOD COUNT 4.55 M/uL (4.00-5.50); WHITE BLOOD COUNT 10.2 K/uL (4.1-10.2)
[2017-11-09 08:00] VITALS: BP 126/74
[2017-11-09 12:00] VITALS: BP 138/79
[2017-11-09 16:46] VITALS: BP 124/72
[2017-11-09 19:29] VITALS: BP 129/69
[2017-11-09 23:41] VITALS: BP 128/69
[2017-11-10] VITALS (7 sets, daily range): BP systolic 121–155; BP diastolic 65–90
[2017-11-11 03:15] VITALS: BP 152/86
[2017-11-11 07:18] VITALS: BP 160/96
[2017-11-11 11:10] VITALS: BP 136/82
[2017-11-11 15:40] VITALS: BP 133/81
[2017-11-11 20:01] VITALS: BP 125/78
[2017-11-12] VITALS (7 sets, daily range): BP systolic 110–166; BP diastolic 65–94
[2017-11-12 06:37] LABS: HEMATOCRIT 45.5 % (38.0-50.0); HEMOGLOBIN 14.5 G/DL (12.5-16.6); MCH 29.2 PG (29.0-34.0); MCHC 31.9 G/DL (30.0-36.0); MCV 91.5 FL (86-99); PLATELET COUNT 260 K/uL (156-360); RBC DIS.WIDTH-CV 14.7 % (11.8-14.6); RBC DIS.WIDTH-SD 49.3 % (39-53); RED BLOOD COUNT 4.97 M/uL (4.00-5.50); WHITE BLOOD COUNT 10.4 K/uL (4.1-10.2)
[2017-11-12 07:00] LABS: ALBUMIN 2.8 G/DL (3.2-4.8); ALKALINE PHOSPHATASE 87 IU/L (3-129); ALT (GPT) 43 IU/L (3-49); AST (GOT) 28 IU/L (2-34); CHLORIDE 90 MEQ/L (99-109); CREATININE 0.5 MG/DL (0.6-1.3); GFR ESTIMATE (CALCULATED) > 59 mL/min/ (58.99-99999); GLUCOSE 73 mg/dL (70-99); POTASSIUM 3.7 MEQ/L (3.7-5.4); SODIUM 135 MEQ/L (136-147); TOTAL BILIRUBIN 0.8 MG/DL (0.0-1.0); TOTAL PROTEIN 5.8 G/DL (6.4-8.3); UREA NITROGEN (BUN) 13 mg/dL (9-23)
[2017-11-13 07:42] VITALS: BP 126/75
[2017-11-13] MEDS ORDERED: PREDNISONE20 MG PO (08:36)
[2017-11-13] MEDS ORDERED: CEFTRIAXONE1 G1 IV (08:36)
== END 2017-11-13 11:00 | DRG 196 ==
LOC: EME 10:35 → EDOF 11:45 → 4EAST 11:45 → 2EAST 11:45 → ENRESERV 12:31 → CANRESERV 12:31 → ENRESERV 12:32 → 4EAST 16:49 → ENRESERV 11-10 10:24 → 2EAST 11-10 21:23
PROVIDERS: Emergency Medicine; Internal Medicine
DX: J84.10 Pulmonary fibrosis, unspecified (principal); J96.21 Acute and chronic respiratory failure with hypoxia; J18.9 Pneumonia, unspecified organism; J44.0 Chronic obstructive pulmonary disease with (acute) lower respiratory infection; J44.1 Chronic obstructive pulmonary disease with (acute) exacerbation; Z99.81 Dependence on supplemental oxygen; I25.10 Atherosclerotic heart disease of native coronary artery without angina pectoris; F03.90 Unspecified dementia, unspecified severity, without behavioral disturbance, psychotic disturbance, mood disturbance, and anxiety; J93.9 Pneumothorax, unspecified; I10 Essential (primary) hypertension; E78.5 Hyperlipidemia, unspecified; K21.9 Gastro-esophageal reflux disease without esophagitis; I25.2 Old myocardial infarction; F41.9 Anxiety disorder, unspecified; F32.9 Major depressive disorder, single episode, unspecified; Z86.73 Personal history of transient ischemic attack (TIA), and cerebral infarction without residual deficits; Z87.891 Personal history of nicotine dependence; Z95.1 Presence of aortocoronary bypass graft
CPT/HCPCS: 36600; 70450; 71045; 80048; 80053; 82803; 83605; 83880; 84484; 85025; 85027; 85610; 85730; 87040; 92526 GN; 92610 GN; 93005; 94640; 94640 76; 94667; 94668; 94799; 97530 GP; 99202; 99281; 99285; J0456; J0696; J1650; J2930; J3370; J7512

== ENCOUNTER 2017-11-20 12:10 | Inpatient (IN) | payer OTHER ==
[~2017-11-20] VITALS: Ht 165.1 cm; Wt 115.0 kg
[~2017-11-20 12:10] MED LIST changes: +CEFTRIAXONE1 G1 IV; +DULCOLAX10 MG PR; +FLEET ENEMA-AD118 ML PR; +MILK OF MAGN PO; +TYLENOL REGULA325 MG PO
[2017-11-20 13:15] LABS: BASOPHIL (%) 0.2 % (0-1); EOSINOPHIL (%) 0 % (0-5); HEMATOCRIT 37.3 % (38.0-50.0); HEMOGLOBIN 12.6 G/DL (12.5-16.6); IMMATURE GRANULOCYTE (%) 0.5 % (0.0-0.7); LYMPHOCYTE (%) 9.6 % (15-42); LYMPHOCYTE COUNT 1.2 K/uL (1.0-2.8); MCH 30.4 PG (29.0-34.0); MCHC 33.8 G/DL (30.0-36.0); MCV 90.1 FL (86-99); MONOCYTE (%) 2.9 % (3-12); MONOCYTE COUNT 0.4 K/uL (0-0.8); NEUTROPHIL (%) 86.8 % (45-76); NEUTROPHIL COUNT 11.1 K/uL (1.8-6.4); PLATELET COUNT 239 K/uL (156-360); RBC DIS.WIDTH-CV 15.3 % (11.8-14.6); RBC DIS.WIDTH-SD 50.5 % (39-53); RED BLOOD COUNT 4.14 M/uL (4.00-5.50); WHITE BLOOD COUNT 12.8 K/uL (4.1-10.2)
[2017-11-20 13:21] LABS: INTER. NORMALIZED RATIO 1.3
[2017-11-20 13:23] LABS: CHLORIDE 89 mEq/L (99-109); POTASSIUM 4.4 mEq/L (3.7-5.4); SODIUM 132 mEq/L (136-147)
[2017-11-20 13:24] LABS: PTT 24.7 SEC (25-37)
[2017-11-20 13:29] LABS: CREATININE 0.7 mg/dL (0.6-1.3); GFR ESTIMATE (CALCULATED) > 59 mL/min/ (58.99-99999)
[2017-11-20 13:30] LABS: UREA NITROGEN (BUN) 13 mg/dL (9-23)
[2017-11-20 13:32] LABS: GLUCOSE 120 mg/dL (70-99)
[2017-11-20 13:35] LABS: TROP-I INTERPRETATION NEGATIVE; TROPONIN-I 0.02 ng/mL (0.0-0.30)
[2017-11-20] MEDS ORDERED: PREDNISONE10 MG PO (16:07)
[2017-11-20] MEDS ORDERED: TRAZODONE HCL50 MG PO (16:09)
[2017-11-20] MEDS ORDERED: ATIVAN0.5 MG PO (16:14)
[2017-11-20] MEDS ORDERED: DULCOLAX10 MG PR (16:15)
[2017-11-20] MEDS ORDERED: MILK OF MAGN PO (16:17)
[2017-11-20] MEDS ORDERED: REFRESH PLUS1 EACH BOTH EYES (16:18)
[2017-11-20 20:24] VITALS: BP 109/61
[2017-11-20 23:39] VITALS: BP 99/59
[2017-11-21 03:27] VITALS: BP 104/65
[2017-11-21 08:16] VITALS: BP 110/64
[2017-11-21 15:37] VITALS: BP 110/66
[2017-11-21 19:30] VITALS: BP 101/59
[2017-11-21 23:50] VITALS: BP 114/68
[2017-11-22 08:15] VITALS: BP 105/56
[2017-11-22 15:45] VITALS: BP 125/65
[2017-11-22 22:58] VITALS: BP 120/67
[2017-11-23 06:42] LABS: ALBUMIN 2.4 G/DL (3.2-4.8); CHLORIDE 94 MEQ/L (99-109); CREATININE 0.4 MG/DL (0.6-1.3); GFR ESTIMATE (CALCULATED) > 59 mL/min/ (58.99-99999); GLUCOSE 119 mg/dL (70-99); PHOSPHORUS 3.7 mg/dL (2.5-4.9); POTASSIUM 4.4 MEQ/L (3.7-5.4); SODIUM 138 MEQ/L (136-147); UREA NITROGEN (BUN) 10 mg/dL (9-23)
[2017-11-23 07:26] VITALS: BP 130/73
[2017-11-23 11:56] VITALS: BP 107/68
[2017-11-23 15:14] VITALS: BP 106/61
[2017-11-23 19:28] VITALS: BP 132/68
[2017-11-23 21:39] VITALS: BP 154/78
[2017-11-23 23:12] VITALS: BP 137/64
[2017-11-24 03:46] VITALS: BP 138/62
[2017-11-24 06:03] LABS: HEMATOCRIT 38.4 % (38.0-50.0); MCH 29.3 PG (29.0-34.0); MCHC 31.3 G/DL (30.0-36.0); MCV 93.7 FL (86-99); PLATELET COUNT 286 K/uL (156-360); RBC DIS.WIDTH-CV 14.6 % (11.8-14.6); RBC DIS.WIDTH-SD 50.9 % (39-53); WHITE BLOOD COUNT 7.3 K/uL (4.1-10.2)
[2017-11-24 06:43] LABS: CHLORIDE 92 MEQ/L (99-109); CREATININE 0.4 MG/DL (0.6-1.3); GFR ESTIMATE (CALCULATED) > 59 mL/min/ (58.99-99999); GLUCOSE 124 mg/dL (70-99); POTASSIUM 4.5 MEQ/L (3.7-5.4); SODIUM 137 MEQ/L (136-147); UREA NITROGEN (BUN) 13 mg/dL (9-23)
[2017-11-24 06:52] LABS: VANCOMYCIN, TROUGH 10.6 MCG/ML (10-20)
[2017-11-24 07:30] VITALS: BP 139/72
[2017-11-24 15:14] VITALS: BP 115/62
[2017-11-24 20:02] VITALS: BP 125/68
[2017-11-24 23:45] VITALS: BP 118/64
[2017-11-25 07:59] VITALS: BP 121/68
[2017-11-25] MEDS ORDERED: CEFEPIME HCL1 GM IV (09:49)
[2017-11-25] MEDS ORDERED: VANCOMYCIN HCL1 GM IV (09:49)
[2017-11-25 15:42] VITALS: BP 146/88
== END 2017-11-25 19:09 | DRG 193 ==
LOC: EME 12:10 → 2EASTP 17:46 → EDOF 17:46 → ENRESERV 18:03 → 2EASTP 19:39 → ENRESERV 11-23 08:41 → 2EAST 11-23 11:14
PROVIDERS: Emergency Medicine; Family Medicine
DX: J18.9 Pneumonia, unspecified organism (principal); Y95 Nosocomial condition; J44.0 Chronic obstructive pulmonary disease with (acute) lower respiratory infection; J44.1 Chronic obstructive pulmonary disease with (acute) exacerbation; J96.21 Acute and chronic respiratory failure with hypoxia; J84.10 Pulmonary fibrosis, unspecified; R64 Cachexia; Z68.20 Body mass index [BMI] 20.0-20.9, adult; Z66 Do not resuscitate; R26.9 Unspecified abnormalities of gait and mobility; I10 Essential (primary) hypertension; F03.90 Unspecified dementia, unspecified severity, without behavioral disturbance, psychotic disturbance, mood disturbance, and anxiety; I25.10 Atherosclerotic heart disease of native coronary artery without angina pectoris; K21.9 Gastro-esophageal reflux disease without esophagitis; N40.0 Benign prostatic hyperplasia without lower urinary tract symptoms; E78.5 Hyperlipidemia, unspecified; F41.9 Anxiety disorder, unspecified; F32.9 Major depressive disorder, single episode, unspecified; I25.2 Old myocardial infarction; Z95.1 Presence of aortocoronary bypass graft; Z85.46 Personal history of malignant neoplasm of prostate; Z86.73 Personal history of transient ischemic attack (TIA), and cerebral infarction without residual deficits; Z87.891 Personal history of nicotine dependence
CPT/HCPCS: 71046; 71275; 80048; 80069; 80202; 84484; 85025; 85027; 85610; 85730; 87040; 93005; 94640; 94640 76; 94760; 94799; 99202; 99281; 99285; J0456; J0692; J2920; J2930; J3370; J7512

== ENCOUNTER 2017-12-03 04:20 | Observation (INO) | payer OTHER ==
[~2017-12-03] VITALS: Ht 165.1 cm; Wt 57.8 kg
[~2017-12-03 04:20] MED LIST changes: +ATIVAN0.5 MG PO; +CEFEPIME HCL1 GM IV; +LEXAPRO5 MG PO; +REFRESH PLUS1 EACH BOTH EYES; +VANCOMYCIN HCL1 GM IV
[2017-12-03 05:49] LABS: HEMATOCRIT 36.6 % (38.0-50.0); HEMOGLOBIN 12.2 G/DL (12.5-16.6); MCH 30.3 PG (29.0-34.0); MCHC 33.3 G/DL (30.0-36.0); PLATELET COUNT 252 K/uL (156-360); RBC DIS.WIDTH-CV 15.4 % (11.8-14.6); RED BLOOD COUNT 4.02 M/uL (4.00-5.50)
[2017-12-03 06:02] LABS: CHLORIDE 96 mEq/L (99-109); POTASSIUM 3.9 mEq/L (3.7-5.4); SODIUM 139 mEq/L (136-147)
[2017-12-03 06:04] LABS: GLUCOSE 88 mg/dL (70-99)
[2017-12-03 06:08] LABS: CREATININE 0.5 mg/dL (0.6-1.3); GFR ESTIMATE (CALCULATED) > 59 mL/min/ (58.99-99999)
[2017-12-03 06:09] LABS: UREA NITROGEN (BUN) 7 mg/dL (9-23)
[2017-12-03 06:11] LABS: TROP-I INTERPRETATION NEGATIVE; TROPONIN-I < 0.01 ng/mL (0.0-0.30)
[2017-12-03 08:41] VITALS: BP 141/62
[2017-12-03] MEDS ORDERED: ASPIRIN81 M2 PO (10:02)
[2017-12-03] MEDS ORDERED: LACTULOSE10 GM/151 PO (10:04)
[2017-12-03] MEDS ORDERED: MAALOX ADVANCE355 ML PO (10:06)
[2017-12-03 12:20] VITALS: BP 118/59
[2017-12-03 13:14] LABS: TROP-I INTERPRETATION NEGATIVE; TROPONIN-I < 0.01 ng/mL (0.0-0.30)
[2017-12-03] MEDS ORDERED: MILK OF MAGN PO (13:28)
[2017-12-03] MEDS ORDERED: LORAZEPAM0.5 MG PO (13:37)
[2017-12-03 15:26] VITALS: BP 127/60
[2017-12-03 19:38] VITALS: BP 145/92
[2017-12-03 19:59] LABS: TROP-I INTERPRETATION NEGATIVE; TROPONIN-I < 0.01 ng/mL (0.0-0.30)
[2017-12-04 00:27] VITALS: BP 118/83
[2017-12-04 04:01] VITALS: BP 109/71
[2017-12-04 08:30] VITALS: BP 115/77
[2017-12-04 11:34] VITALS: BP 158/83
[2017-12-04 15:37] VITALS: BP 114/70
== END 2017-12-04 17:32 ==
LOC: EME → EDBD 04:20 → EDOF 06:29 → 4SOUTH 06:29 → EDOF 06:29 → ENRESERV 06:32 → 4SOUTH 08:17
PROVIDERS: Family Medicine
DX: I25.10 Atherosclerotic heart disease of native coronary artery without angina pectoris (principal); Z95.1 Presence of aortocoronary bypass graft; Z95.5 Presence of coronary angioplasty implant and graft; J44.0 Chronic obstructive pulmonary disease with (acute) lower respiratory infection; J18.9 Pneumonia, unspecified organism; J44.1 Chronic obstructive pulmonary disease with (acute) exacerbation; J84.10 Pulmonary fibrosis, unspecified; F41.8 Other specified anxiety disorders; K21.9 Gastro-esophageal reflux disease without esophagitis; M19.90 Unspecified osteoarthritis, unspecified site; R26.89 Other abnormalities of gait and mobility; F03.90 Unspecified dementia, unspecified severity, without behavioral disturbance, psychotic disturbance, mood disturbance, and anxiety; Z66 Do not resuscitate; R64 Cachexia; R00.0 Tachycardia, unspecified; R94.31 Abnormal electrocardiogram [ECG] [EKG]; C61 Malignant neoplasm of prostate; N40.0 Benign prostatic hyperplasia without lower urinary tract symptoms; I11.9 Hypertensive heart disease without heart failure; E78.5 Hyperlipidemia, unspecified; Z88.5 Allergy status to narcotic agent; Z99.81 Dependence on supplemental oxygen
CPT/HCPCS: 71046; 80048; 84484; 85027; 93005; 94640; 94640 76; 94760; 94799; 99202; 99281; 99285; G0378; J0692; J7512

== ENCOUNTER 2017-12-05 23:54 | Emergency (ER) | payer OTHER ==
[~2017-12-05] VITALS: Ht 165.1 cm; Wt 54.9 kg
[~2017-12-05 23:54] MED LIST changes: +ASPIRIN81 M2 PO; +LACTULOSE10 GM/151 PO; +LORAZEPAM0.5 MG PO; +MAALOX ADVANCE355 ML PO
[2017-12-06 00:40] LABS: HEMATOCRIT 43.7 % (38.0-50.0); HEMOGLOBIN 14.2 G/DL (12.5-16.6); MCHC 32.5 G/DL (30.0-36.0); MCV 92.4 FL (86-99); PLATELET COUNT 368 K/uL (156-360); RBC DIS.WIDTH-CV 15.8 % (11.8-14.6); RBC DIS.WIDTH-SD 53.5 % (39-53); RED BLOOD COUNT 4.73 M/uL (4.00-5.50); WHITE BLOOD COUNT 9.3 K/uL (4.1-10.2)
[2017-12-06 00:43] LABS: CHLORIDE 94 mEq/L (99-109); POTASSIUM 4.3 mEq/L (3.7-5.4); SODIUM 140 mEq/L (136-147)
[2017-12-06 00:47] LABS: TOTAL BILIRUBIN 0.5 mg/dL (0.0-1.0)
[2017-12-06 00:51] LABS: TROP-I INTERPRETATION NEGATIVE; TROPONIN-I 0.01 ng/mL (0.0-0.30)
[2017-12-06 00:54] LABS: ALBUMIN 3.3 g/dL (3.2-4.8)
[2017-12-06 00:57] LABS: GLUCOSE 97 mg/dL (70-99); TOTAL PROTEIN 7.3 g/dL (6.4-8.3)
[2017-12-06 01:00] LABS: ALKALINE PHOSPHATASE 110 IU/L (3-129); CREATININE 0.6 mg/dL (0.6-1.3); GFR ESTIMATE (CALCULATED) > 59 mL/min/ (58.99-99999)
[2017-12-06 01:01] LABS: UREA NITROGEN (BUN) 7 mg/dL (9-23)
[2017-12-06 01:02] LABS: AST (GOT) 27 IU/L (2-34); DIRECT BILIRUBIN 0.2 mg/dL (0.0-0.3)
[2017-12-06 01:03] LABS: ALT (GPT) 67 IU/L (3-49)
[2017-12-06 01:04] LABS: LIPASE 18 U/L (1.0-51.0)
[2017-12-06 03:46] LABS: TROP-I INTERPRETATION NEGATIVE; TROPONIN-I 0.01 ng/mL (0.0-0.30)
[2017-12-06 06:26] VITALS: BP 108/67
== END 2017-12-06 06:30 ==
LOC: EME → EDBD 23:54 → EME 12-06 06:30
PROVIDERS: Emergency Medicine
DX: R07.9 Chest pain, unspecified (principal); I25.2 Old myocardial infarction; I10 Essential (primary) hypertension; K21.9 Gastro-esophageal reflux disease without esophagitis; F03.90 Unspecified dementia, unspecified severity, without behavioral disturbance, psychotic disturbance, mood disturbance, and anxiety; Z99.81 Dependence on supplemental oxygen; Z86.73 Personal history of transient ischemic attack (TIA), and cerebral infarction without residual deficits; Z95.1 Presence of aortocoronary bypass graft; Z79.82 Long term (current) use of aspirin; Z88.5 Allergy status to narcotic agent
CPT/HCPCS: 71045; 80048; 80076; 83690; 84484; 85027; 93005; 99281; 99285

== ENCOUNTER 2017-12-22 09:04 | Emergency (ER) | payer OTHER ==
[~2017-12-22] VITALS: Ht 177.8 cm; Wt 54.6 kg
[2017-12-22 09:54] LABS: APPEARANCE SL.HAZY ((CLEAR)); BILIRUBIN NEGATIVE; BLOOD NEGATIVE; COLOR YELLOW ((YELLOW)); GLUCOSE (STRIP) NEGATIVE; KETONES NEGATIVE; LEUKOCYTES NEGATIVE; NITRITE NEGATIVE; PROTEIN (STRIP) NEGATIVE; UROBILINOGEN 0.2 MG/DL (0.2-1.0)
[2017-12-22 10:00] LABS: BACTERIA RARE /HPF; CALCIUM OXALATE CRYSTALS 1+ /HPF; EPITHELIAL CELLS RARE /HPF; MUCUS TRACE /LPF; RED BLOOD CELLS 0-5 /HPF (0-5); UCUL ADDED? NO; WHITE BLOOD CELLS NONE SEEN /HPF (0-5)
[2017-12-22 10:40] LABS: HEMATOCRIT 43.9 % (38.0-50.0); HEMOGLOBIN 14.2 G/DL (12.5-16.6); MCH 29.9 PG (29.0-34.0); MCHC 32.3 G/DL (30.0-36.0); MCV 92.4 FL (86-99); PLATELET COUNT 324 K/uL (156-360); RBC DIS.WIDTH-CV 15.2 % (11.8-14.6); RBC DIS.WIDTH-SD 51.8 % (39-53); RED BLOOD COUNT 4.75 M/uL (4.00-5.50); WHITE BLOOD COUNT 14.2 K/uL (4.1-10.2)
[2017-12-22 11:01] LABS: TROP-I INTERPRETATION NEGATIVE; TROPONIN-I 0.02 ng/mL (0.0-0.30)
[2017-12-22 11:12] LABS: CHLORIDE 93 MEQ/L (99-109); CREATININE 0.5 MG/DL (0.6-1.3); GFR ESTIMATE (CALCULATED) > 59 mL/min/ (58.99-99999); GLUCOSE 93 mg/dL (70-99); POTASSIUM 4.8 MEQ/L (3.7-5.4); SODIUM 138 MEQ/L (136-147); UREA NITROGEN (BUN) 7 mg/dL (9-23)
[2017-12-22 14:41] VITALS: BP 112/64
== END 2017-12-22 14:41 ==
LOC: EME 09:04
PROVIDERS: Emergency Medicine
DX: Z04.3 Encounter for examination and observation following other accident (principal); F03.90 Unspecified dementia, unspecified severity, without behavioral disturbance, psychotic disturbance, mood disturbance, and anxiety; I10 Essential (primary) hypertension; E78.5 Hyperlipidemia, unspecified; K21.9 Gastro-esophageal reflux disease without esophagitis; F32.9 Major depressive disorder, single episode, unspecified; I25.2 Old myocardial infarction; Z79.82 Long term (current) use of aspirin; Z86.73 Personal history of transient ischemic attack (TIA), and cerebral infarction without residual deficits; Z85.9 Personal history of malignant neoplasm, unspecified; Z95.1 Presence of aortocoronary bypass graft; Z90.49 Acquired absence of other specified parts of digestive tract; Z88.5 Allergy status to narcotic agent
CPT/HCPCS: 70450; 71045; 80048; 81003; 84484; 85027; 93005; 99281; 99285; J7030

== ENCOUNTER 2017-12-31 09:47 | Inpatient (IN) | payer OTHER ==
[~2017-12-31] VITALS: Ht 165.1 cm; Wt 56.3 kg
[2017-12-31 10:47] LABS: HEMATOCRIT 39.1 % (38.0-50.0); HEMOGLOBIN 12.8 G/DL (12.5-16.6); MCH 29.8 PG (29.0-34.0); MCHC 32.7 G/DL (30.0-36.0); MCV 90.9 FL (86-99); PLATELET COUNT 411 K/uL (156-360); RBC DIS.WIDTH-CV 14.9 % (11.8-14.6); RBC DIS.WIDTH-SD 49.8 % (39-53); WHITE BLOOD COUNT 17.7 K/uL (4.1-10.2)
[2017-12-31 10:53] LABS: INTER. NORMALIZED RATIO 1.3
[2017-12-31 10:56] LABS: CHLORIDE 92 mEq/L (99-109); POTASSIUM 4.2 mEq/L (3.7-5.4); PTT 25.6 SEC (25-37); SODIUM 137 mEq/L (136-147)
[2017-12-31 10:58] LABS: GLUCOSE 130 mg/dL (70-99)
[2017-12-31 11:02] LABS: CREATININE 0.6 mg/dL (0.6-1.3); GFR ESTIMATE (CALCULATED) > 59 mL/min/ (58.99-99999)
[2017-12-31 11:03] LABS: UREA NITROGEN (BUN) 11 mg/dL (9-23)
[2017-12-31 11:09] LABS: TROP-I INTERPRETATION NEGATIVE; TROPONIN-I 0.01 ng/mL (0.0-0.30)
[2017-12-31 14:56] LABS: APPEARANCE SL.HAZY ((CLEAR)); BILIRUBIN NEGATIVE; BLOOD NEGATIVE; COLOR YELLOW ((YELLOW)); GLUCOSE (STRIP) NEGATIVE; KETONES NEGATIVE; LEUKOCYTES NEGATIVE; NITRITE NEGATIVE; PROTEIN (STRIP) NEGATIVE; SPECIFIC GRAVITY 1.024 (1.000-1.030); UROBILINOGEN 0.2 MG/DL (0.2-1.0)
[2017-12-31 15:05] LABS: BACTERIA RARE /HPF; EPITHELIAL CELLS RARE /HPF; MUCUS 1+ /LPF; RED BLOOD CELLS 0-5 /HPF (0-5); UCUL ADDED? NO; WHITE BLOOD CELLS 0-5 /HPF (0-5)
[2017-12-31] MEDS ORDERED: TYLENOL REGULA325 MG PO (15:51)
[2017-12-31] MEDS ORDERED: BUSPAR5 MG PO (15:52)
[2017-12-31] MEDS ORDERED: ELAVIL10 MG PO (15:52)
[2017-12-31] MEDS ORDERED: ATIVAN0.5 MG PO (15:52)
[2017-12-31] MEDS ORDERED: LOPRESSOR50 MG PO (15:54)
[2017-12-31] MEDS ORDERED: DUONEB 2.5-0.5 M3 ML AEROSOL (15:55)
[2017-12-31] MEDS ORDERED: ZOFRAN4 MG PO (15:57)
[2017-12-31] MEDS ORDERED: SILVADENE20 GM TP (15:58)
[2017-12-31 21:16] VITALS: BP 132/77
[2018-01-01] VITALS (7 sets, daily range): BP systolic 116–134; BP diastolic 59–74
[2018-01-01 09:06] LABS: HEMATOCRIT 36.1 % (38.0-50.0); HEMOGLOBIN 11.2 G/DL (12.5-16.6); MCH 28.9 PG (29.0-34.0); PLATELET COUNT 397 K/uL (156-360); RBC DIS.WIDTH-CV 15.1 % (11.8-14.6); RBC DIS.WIDTH-SD 51.8 % (39-53); RED BLOOD COUNT 3.88 M/uL (4.00-5.50); WHITE BLOOD COUNT 9.3 K/uL (4.1-10.2)
[2018-01-01 09:39] LABS: CHLORIDE 95 MEQ/L (99-109); CREATININE 0.4 MG/DL (0.6-1.3); GFR ESTIMATE (CALCULATED) > 59 mL/min/ (58.99-99999); SODIUM 139 MEQ/L (136-147); UREA NITROGEN (BUN) 9 mg/dL (9-23)
[2018-01-01 09:40] LABS: GLUCOSE 82 mg/dL (70-99)
[2018-01-02 04:24] VITALS: BP 129/61
[2018-01-02 07:52] LABS: COMMENTS - BLOOD GASES A+C+; DEVICE HFNC; O2 FLOW 8 L/MIN; SITE RR; TOTAL RESP RATE 30 resp/min
[2018-01-02 07:53] LABS: PCO2 49 mm Hg (35-45)
[2018-01-02 07:54] LABS: BASE EXCESS 13.1 mEq/L (-3 to +3); BICARBONATE 38.2 mEq/L (22-26); PO2 39 mm Hg (80-100)
[2018-01-02 08:04] VITALS: BP 144/80
[2018-01-02 08:15] LABS: HEMOGLOBIN 12.8 G/DL (12.5-16.6); MCH 29.7 PG (29.0-34.0); MCHC 32.8 G/DL (30.0-36.0); MCV 90.5 FL (86-99); PLATELET COUNT 460 K/uL (156-360); RBC DIS.WIDTH-CV 14.6 % (11.8-14.6); RBC DIS.WIDTH-SD 48.6 % (39-53); RED BLOOD COUNT 4.31 M/uL (4.00-5.50); WHITE BLOOD COUNT 13.7 K/uL (4.1-10.2)
[2018-01-02 08:26] LABS: CHLORIDE 90 mEq/L (99-109); SODIUM 135 mEq/L (136-147)
[2018-01-02 08:28] LABS: GLUCOSE 98 mg/dL (70-99)
[2018-01-02 08:32] LABS: CREATININE 0.5 mg/dL (0.6-1.3); GFR ESTIMATE (CALCULATED) > 59 mL/min/ (58.99-99999)
[2018-01-02 08:33] LABS: UREA NITROGEN (BUN) 5 mg/dL (9-23)
[2018-01-02 08:34] LABS: TROP-I INTERPRETATION NEGATIVE; TROPONIN-I < 0.01 ng/mL (0.0-0.30)
[2018-01-02 08:40] LABS: POTASSIUM 3.9 mEq/L (3.7-5.4)
[2018-01-02 23:25] VITALS: BP 128/77
== END 2018-01-04 17:36 | disposition hospice, home (50) | DRG 189 ==
LOC: EME → EDBD 09:47 → 2EAST 15:00 → EDOF 15:00 → ENRESERV 15:36 → 2EAST 20:55 → EDPENDDIS 01-04 12:51 → ENPENDDIS 01-04 12:51 → 2EAST 01-04 17:36
PROVIDERS: Emergency Medicine; Family Medicine; Hospitalist
DX: J96.21 Acute and chronic respiratory failure with hypoxia (principal); J44.1 Chronic obstructive pulmonary disease with (acute) exacerbation; J84.10 Pulmonary fibrosis, unspecified; E87.4 Mixed disorder of acid-base balance; E86.0 Dehydration; Z51.5 Encounter for palliative care; Z66 Do not resuscitate; R64 Cachexia; I10 Essential (primary) hypertension; E78.5 Hyperlipidemia, unspecified; F03.90 Unspecified dementia, unspecified severity, without behavioral disturbance, psychotic disturbance, mood disturbance, and anxiety; K21.9 Gastro-esophageal reflux disease without esophagitis; I25.10 Atherosclerotic heart disease of native coronary artery without angina pectoris; F41.9 Anxiety disorder, unspecified; F32.9 Major depressive disorder, single episode, unspecified; Z85.46 Personal history of malignant neoplasm of prostate; Z99.81 Dependence on supplemental oxygen; I25.2 Old myocardial infarction; Z95.1 Presence of aortocoronary bypass graft; Z86.73 Personal history of transient ischemic attack (TIA), and cerebral infarction without residual deficits; Z79.82 Long term (current) use of aspirin; Z68.20 Body mass index [BMI] 20.0-20.9, adult
CPT/HCPCS: 36600; 70450; 71045; 71275; 73080; 80048; 81003; 83605; 83880; 84484; 85027; 85610; 85730; 87040; 93005; 94640; 94799; 99281; 99283; J0692; J2060; J2270; J2405; J2930; J7040; J7512